=== PATIENT | male | born 1970 | race African-American/Black ===

== ENCOUNTER 2016-10-10 11:58 | Inpatient (IN) | payer OTHER ==
[2016-10-10 12:44] VITALS: BMI 25.9
[2016-10-10] MEDS ORDERED: MAGNESIUM HYDROX 2400MG/30ML ORAL SUSPENSION 30 ML CUP PO PRN (17:37)
[2016-10-10] MEDS ORDERED: chlordiazePOXIDE HCL 25 MG CAPSULE PO PRN (17:37)
[2016-10-10] MEDS ORDERED: MENTHOL/PHENOL 1 EACH UD MM PRN (17:37)
[2016-10-10] MEDS ORDERED: guaiFENesin/D-METHORPHAN HB 10 ML UNIT-DOSE CUPS PO PRN (17:37)
[2016-10-10] MEDS ORDERED: NICOTINE POLACRILEX 4 MG GUM BC PRN (17:37)
[2016-10-10] MEDS ORDERED: MAG HYDROX/AL HYDROX/SIMETH 30 ML UNIT-DOSE CUP PO PRN (17:37)
[2016-10-10] MEDS ORDERED: P-EPHED 60MG/TRIPROLIDI 2.5MG TABLET PO PRN (17:37)
[2016-10-10] MEDS ORDERED: MAGNESIUM CITRATE 300 ML BOTTLE PO PRN (17:37)
[2016-10-10] MEDS ORDERED: ACETAMINOPHEN 325 MG TABLET (FP) PO PRN (17:37)
[2016-10-10] MEDS ORDERED: LOPERAMIDE HCL 2 MG CAPSULE PO PRN (17:37)
[2016-10-10] MEDS ORDERED: IBUPROFEN 400 MG TABLET (FP) PO PRN (17:37)
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
[2016-10-10 21:13] LABS: URINE APPEARANCE CLEAR; URINE BILIRUBIN NEGATIVE (NEGATIVE); URINE BLOOD NEGATIVE (NEGATIVE); URINE COLOR YELLOW; URINE GLUCOSE (UA) NEGATIVE (NEGATIVE); URINE KETONE TRACE (NEGATIVE); URINE LEUK ESTERASE NEGATIVE (NEGATIVE); URINE NITRITE NEGATIVE (NEGATIVE); URINE PROTEIN NEGATIVE (NEGATIVE); URINE UROBILINOGEN NEGATIVE E.U./dl (0.2-1.0)
[2016-10-10] MEDS: chlordiazePOXIDE HCL 25 MG CAPSULE PO SCH (22:18)
[2016-10-10] MEDS: THIAMINE HCL 100 MG TABLET (FP) PO SCH (22:18)
[2016-10-10] MEDS: diphenhydrAMINE HCL 50 MG CAPSULE PO PRN (23:51)
[2016-10-11] MEDS: chlordiazePOXIDE HCL 25 MG CAPSULE PO SCH ×4 (05:11→22:31)
[2016-10-11 09:58] LABS: MCH 29.2 pg (25.7-33.7); MCHC 33.3 g/dl (32.0-35.9); MEAN CELL VOLUME 87.8 fl (80-96); PLATELET COUNT 182 K/MM3 (134-434); RDW 15.1 % (11.9-15.9); WHITE BLOOD COUNT 5.6 K/mm3 (4.0-10.0)
--- NOTE | 2016-10-11 10:04 | PN ---
S CIWA - CIWA Score Nausea/Vomitin-No Nausea/No Vomiting Muscle Tremors: 4-Moderate,w/Arms Extend Anxiety: 3 Agitation: 4-Moderately Restless Paroxysmal Sweats: 3 Orientation: 0-Oriented Tacttile Disturbances: 0-None Auditory Disturbances: 0-None Visual Disturbances: 0-None Headache: 1-Very Mild CIWA-Ar Total Score: 15 BHS Progress Note (SOAP) Subjective: headache sweats shakes irritable chills Objective: 10/11/16 10:02 Vital Signs Temperature 98.1 F 10/11/16 09:43 Pulse Rate 85 10/11/16 09:43 Respiratory Rate 18 10/11/16 09:43 Blood Pressure 134/82 10/11/16 09:43 O2 Sat by Pulse Oximetry (%) Laboratory Tests 10/10/16 20:00 Urine Color Yellow Urine Appearance Clear Urine pH 5.0 Ur Specific [place] 1.025 Urine Protein Negative Urine Glucose (UA) Negative Urine Ketones Trace H Urine Blood Negative Urine Nitrite Negative Urine Bilirubin Negative Urine Urobilinogen Negative Ur Leukocyte Esterase Negative labs pending awake/alert lying in bed no acute distress Assessment: 10/11/16 10:03 withdrawal sx Plan: continue detox increase fluids labs pending
[2016-10-11] MEDS: PRENATAL VITAMINS W/ FOLIC ACID TABLET (FP) PO SCH (10:13)
[2016-10-11] MEDS: NICOTINE 21 MG/24 HOURS TOPICAL PATCH TD SCH (10:14)
[2016-10-11 10:18] LABS: ALBUMIN 4.4 g/dl (3.4-5.0); ALK PHOS 82 U/L (45-117); ANION GAP 8 (8-16); BILIRUBIN,TOTAL 0.7 mg/dL (0.2-1.0); CALCIUM 9.1 mg/dL (8.5-10.1); CO2 28 mmol/L (21-32); COCKROFT - GAULT 104; GLUCOSE,RANDOM 80 mg/dL (74-106); SGOT/AST 26 U/L (15-37); SGPT/ALT 19 U/L (12-78); TOT PROT 7.3 g/dl (6.4-8.2)
--- NOTE | 2016-10-11 10:36 | EKG ---
Test Reason : Blood Pressure : / mmHG Vent. Rate : 095 BPM Atrial Rate : 095 BPM P-R Int : 160 ms QRS Dur : 090 ms QT Int : 354 ms P-R-T Axes : 068 061 054 degrees QTc Int : 444 ms NORMAL SINUS RHYTHM NORMAL ECG NO PREVIOUS ECGS AVAILABLE Confirmed by CHANEL STEEN MD ([id number]) on 10/11/2016 10:36:07 AM Referred By: Confirmed By:CHANEL STEEN MD
[2016-10-11 11:14] LABS: HIV 1 & 2 AB NEGATIVE; HIV 1 AGp24 NEGATIVE
[2016-10-11] MEDS: THIAMINE HCL 100 MG TABLET (FP) PO SCH (22:31)
[2016-10-11] MEDS: diphenhydrAMINE HCL 50 MG CAPSULE PO PRN (22:31)
[2016-10-12] MEDS: chlordiazePOXIDE HCL 25 MG CAPSULE PO SCH ×3 (05:35→17:44)
--- NOTE | 2016-10-12 09:58 | PN ---
S CIWA - CIWA Score Nausea/Vomitin-No Nausea/No Vomiting Muscle Tremors: 4-Moderate,w/Arms Extend Anxiety: 3 Agitation: 4-Moderately Restless Paroxysmal Sweats: 3 Orientation: 0-Oriented Tacttile Disturbances: 0-None Auditory Disturbances: 0-None Visual Disturbances: 0-None Headache: 0-None Present CIWA-Ar Total Score: 14 BHS Progress Note (SOAP) Subjective: sweats irritable agitation tired Objective: 10/12/16 09:51 Vital Signs Temperature 97.3 F L 10/12/16 06:00 Pulse Rate 64 10/12/16 06:00 Respiratory Rate 18 10/12/16 06:00 Blood Pressure 127/79 10/12/16 06:00 O2 Sat by Pulse Oximetry (%) Laboratory Tests 10/10/16 10/11/16 10/11/16 20:00 06:00 06:00 WBC 5.6 RBC 4.80 Hgb 14.0 D Hct 42.1 MCV 87.8 MCHC 33.3 RDW 15.1 Plt Count 182 MPV 9.0 Sodium Potassium Chloride Carbon Dioxide Anion Gap BUN Creatinine Creat Clearance w eGFR Random Glucose Calcium Total Bilirubin AST ALT Alkaline Phosphatase Total Protein Albumin Urine Color Yellow Urine Appearance Clear Urine pH 5.0 Ur Specific [place] 1.025 Urine Protein Negative Urine Glucose (UA) Negative Urine Ketones Trace H Urine Blood Negative Urine Nitrite Negative Urine Bilirubin Negative Urine Urobilinogen Negative Ur Leukocyte Esterase Negative RPR Titer HIV 1&2 Antibody Screen Negative HIV P24 Antigen Negative 10/11/16 10/11/16 06:00 06:00 WBC RBC Hgb Hct MCV MCHC RDW Plt Count MPV Sodium 139 Potassium 4.5 Chloride 103 Carbon Dioxide 28 Anion Gap 8 BUN 13 Creatinine 1.0 Creat Clearance w eGFR > 60 Random Glucose 80 D Calcium 9.1 Total Bilirubin 0.7 D AST 26 D ALT 19 D Alkaline Phosphatase 82 Total Protein 7.3 Albumin 4.4 Urine Color Urine Appearance Urine pH Ur Specific [place] Urine Protein Urine Glucose (UA) Urine Ketones Urine Blood Urine Nitrite Urine Bilirubin Urine Urobilinogen Ur Leukocyte Esterase RPR Titer Nonreactive HIV 1&2 Antibody Screen HIV P24 Antigen awake/alert ambulating no acute distress Assessment: 10/12/16 09:58 withdrawal sx Plan: continue detox increase fluids
[2016-10-12] MEDS: PRENATAL VITAMINS W/ FOLIC ACID TABLET (FP) PO SCH (10:17)
[2016-10-12] MEDS: NICOTINE 21 MG/24 HOURS TOPICAL PATCH TD SCH (10:18)
[2016-10-12] MEDS: chlordiazePOXIDE 5 MG CAPSULE PO SCH (22:16)
[2016-10-12] MEDS: THIAMINE HCL 100 MG TABLET (FP) PO SCH (22:16)
[2016-10-12] MEDS: diphenhydrAMINE HCL 50 MG CAPSULE PO PRN (23:56)
[2016-10-13] MEDS: chlordiazePOXIDE 5 MG CAPSULE PO SCH ×3 (05:21→17:09)
[2016-10-13] MEDS: PRENATAL VITAMINS W/ FOLIC ACID TABLET (FP) PO SCH (10:24)
[2016-10-13] MEDS: NICOTINE 21 MG/24 HOURS TOPICAL PATCH TD SCH (10:25)
--- NOTE | 2016-10-13 12:55 | PN ---
BHS Progress Note (SOAP) Subjective: ALERT,IRRITABLE,ANXIOUS,INTERRUPTED SLEEP,PAIN IN THE BODY AND BACK Objective: 10/13/16 12:54 Vital Signs Temperature 97.7 F 10/13/16 06:18 Pulse Rate 82 10/13/16 06:18 Respiratory Rate 18 10/13/16 06:18 Blood Pressure 115/79 10/13/16 06:18 O2 Sat by Pulse Oximetry (%) Assessment: 10/13/16 12:54 WITHDRAWAL SYMPTOM Plan: WITHDRAWAL SYMPTOM,CONTINUE DETOX
[2016-10-13] MEDS: diphenhydrAMINE HCL 50 MG CAPSULE PO PRN (22:15)
[2016-10-13] MEDS: THIAMINE HCL 100 MG TABLET (FP) PO SCH (22:15)
[2016-10-13] MEDS: chlordiazePOXIDE HCL 10 MG CAPSULE PO SCH (22:15)
[2016-10-14] MEDS: chlordiazePOXIDE HCL 10 MG CAPSULE PO SCH (05:37)
--- NOTE | 2016-10-14 09:16 | PN ---
S Progress Note (SOAP) Subjective: ALERT,NO COMPLAINT Objective: 10/14/16 09:15 Vital Signs Temperature 97.3 F L 10/14/16 06:00 Pulse Rate 68 10/14/16 06:00 Respiratory Rate 18 10/14/16 06:00 Blood Pressure 125/76 10/14/16 06:00 O2 Sat by Pulse Oximetry (%) Assessment: 10/14/16 09:15 DETOX COMPLETED,NO WITHDRAWAL SYMPTOM Plan: DISCHARGE TODAY,FOLLOW UP WITH AFTER CARE PROGRAM ARRANGEMENT
--- NOTE | 2016-10-14 09:18 | DS ---
[facility] Detox Discharge Summary Admission Date: 10/10/16 Discharge Date: 10/14/16 - History Present History: Alcohol Dependence, Cocaine Dependence Additional Comments: FOLLOW UP WITH AFTER CARE PROGRAM ARRANGEMENT Pertinent Past History: NICOTINE DEPENDENCE ARTHRITIS - Physical Exam Results Vital Signs: Vital Signs Temperature 97.3 F L 10/14/16 06:00 Pulse Rate 68 10/14/16 06:00 Respiratory Rate 18 10/14/16 06:00 Blood Pressure 125/76 10/14/16 06:00 O2 Sat by Pulse Oximetry (%) Pertinent Admission Physical Exam Findings: WITHDRAWAL SYMPTOM - Treatment Hospital Course: Detox Protocol Followed, Detoxed Safely, Responded well, Discharged Condition Good Patient has Accepted a Rehab Referral to: DECLINED - Medication Discharge Medications: Ambulatory Orders Aspirin/Acetaminophen/Caffeine [Excedrin Migraine Caplet] 1 tab PO DAILY PRN 11/19 - Diagnosis (1) Alcohol dependence with uncomplicated withdrawal Current Visit: Yes Status: Acute (2) Nicotine dependence Current Visit: Yes Status: Acute (3) Chronic arthritis Current Visit: No Status: Chronic (4) Cocaine dependence Current Visit: Yes Status: Acute - AMA Did Patient Leave Against Medical Advice: No
[2016-10-14] MEDS: NICOTINE 21 MG/24 HOURS TOPICAL PATCH TD SCH (09:47)
[2016-10-14] MEDS: PRENATAL VITAMINS W/ FOLIC ACID TABLET (FP) PO SCH (09:47)
[2016-10-14 10:02] VITALS: BP 119/73; PULSE 95; TEMP 97.7
== END 2016-10-14 10:10 | disposition home or self-care (01) | DRG 774 ==
LOC: YASAS 11:58 → Y6N 17:35
PROVIDERS: ADMIT Internal Medicine; ATTEND Internal Medicine
PROC: HZ2ZZZZ Detoxification Services for Substance Abuse Treatment (ICD-10-PCS; principal; 2016-10-10)
DX: F10.230 Alcohol dependence with withdrawal, uncomplicated (principal); F14.20 Cocaine dependence, uncomplicated; F17.210 Nicotine dependence, cigarettes, uncomplicated; M19.90 Unspecified osteoarthritis, unspecified site
CPT/HCPCS: 36415; 80053; 81003; 85027; 86593; 87389; 93005; 93010

== ENCOUNTER 2018-12-29 12:38 | Inpatient (IN) | payer OTHER ==
[2018-12-29 15:40] VITALS: BMI 28.7
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
[2018-12-29] MEDS ORDERED: hydrOXYzine PAMOATE 25 MG CAPSULE (FP) PO PRN (17:22)
[2018-12-29] MEDS ORDERED: IBUPROFEN 400 MG TABLET (FP) PO PRN (17:22)
[2018-12-29] MEDS ORDERED: MAGNESIUM HYDROX 2400MG/30ML ORAL SUSPENSION 30 ML CUP PO PRN (17:22)
[2018-12-29] MEDS ORDERED: ACETAMINOPHEN 325 MG TABLET (FP) PO PRN ×2 (17:22)
[2018-12-29] MEDS ORDERED: METHOCARBAMOL 500 MG TABLET PO PRN (17:22)
[2018-12-29] MEDS ORDERED: MAG HYDROX/AL HYDROX/SIMETH 30 ML UNIT-DOSE CUP PO PRN (17:22)
[2018-12-29] MEDS ORDERED: MENTHOL/PHENOL 1 EACH UD MM PRN (17:22)
[2018-12-29] MEDS ORDERED: MAGNESIUM CITRATE 300 ML BOTTLE PO PRN (17:22)
[2018-12-29] MEDS ORDERED: BISMUTH SUBSALICYLATE 524 MG/30 ML UD PO PRN (17:22)
--- NOTE | 2018-12-29 17:41 | PN ---
Teaching Attending Note Name of Resident: Wayne Mac ATTENDING PHYSICIAN STATEMENT I saw and evaluated the patient. I reviewed the resident's note and discussed the case with the resident. I agree with the resident's findings and plan as documented. SUBJECTIVE: etoh withdrawal OBJECTIVE: acute withdrawal ASSESSMENT AND PLAN: detox protocol
[2018-12-29] MEDS: chlordiazePOXIDE HCL 25 MG CAPSULE PO PRN (18:23)
[2018-12-29] MEDS: chlordiazePOXIDE HCL 25 MG CAPSULE PO SCH (22:30)
[2018-12-29] MEDS: THIAMINE HCL 100 MG TABLET (FP) PO SCH (22:30)
[2018-12-30] MEDS: chlordiazePOXIDE HCL 25 MG CAPSULE PO PRN (02:01)
[2018-12-30] MEDS: MELATONIN 5 MG TABLETS PO PRN ×2 (02:01→22:24)
[2018-12-30] MEDS: chlordiazePOXIDE HCL 25 MG CAPSULE PO SCH ×4 (06:46→22:23)
[2018-12-30] MEDS: PRENATAL VITAMINS W/ FOLIC ACID TABLET (FP) PO SCH (10:40)
--- NOTE | 2018-12-30 11:04 | PN ---
S CIWA - CIWA Score Nausea/Vomitin Muscle Tremors: 2 Anxiety: 2 Agitation: 2 Paroxysmal Sweats: 1-Minimal Palms Moist Orientation: 0-Oriented Tacttile Disturbances: 1-Very Mild Itch/Numbness Auditory Disturbances: 0-None Visual Disturbances: 0-None Headache: 2-Mild CIWA-Ar Total Score: 12 BHS Progress Note (SOAP) Subjective: alert,irritable,anxious,interrupted sleep,tremor Objective: 12/30/18 11:03 Vital Signs Temperature 97.7 F 12/30/18 09:19 Pulse Rate 84 12/30/18 09:19 Respiratory Rate 18 12/30/18 09:19 Blood Pressure 134/79 12/30/18 09:19 O2 Sat by Pulse Oximetry (%) 12/30/18 11:03 labs pending Assessment: 12/30/18 11:04 withdrawal symptom Plan: continue detox,librium regimen
[2018-12-30 11:50] LABS: BILIRUBIN,TOTAL 0.8 mg/dL (0.2-1); BLOOD UREA NITROGEN 12.3 mg/dL (7-18); CALCIUM 9.2 mg/dL (8.5-10.1); CREATININE 1.1 mg/dL (0.55-1.3); POTASSIUM 4.5 mmol/L (3.5-5.1)
[2018-12-30 11:58] LABS: HEMATOCRIT 42.9 % (35.4-49); HEMOGLOBIN 14.4 GM/dL (11.7-16.9); MCH 30.6 pg (25.7-33.7); MCHC 33.5 g/dl (32.0-35.9); MEAN CELL VOLUME 91.2 fl (80-96); PLATELET COUNT 170 K/MM3 (134-434); RDW 18.4 % (11.9-15.9); WHITE BLOOD COUNT 3.5 K/mm3 (4.0-10.0)
[2018-12-30] MEDS: NICOTINE POLACRILEX 2 MG GUM BUC PRN ×2 (15:41→17:55)
[2018-12-30] MEDS: THIAMINE HCL 100 MG TABLET (FP) PO SCH (22:23)
[2018-12-31] MEDS: chlordiazePOXIDE HCL 25 MG CAPSULE PO PRN (03:59)
[2018-12-31] MEDS: chlordiazePOXIDE HCL 25 MG CAPSULE PO SCH ×4 (07:32→22:07)
--- NOTE | 2018-12-31 09:49 | PN ---
S CIWA - CIWA Score Nausea/Vomitin Muscle Tremors: 2 Anxiety: 2 Agitation: 2 Paroxysmal Sweats: No Perspiration Orientation: 0-Oriented Tacttile Disturbances: 0-None Auditory Disturbances: 0-None Visual Disturbances: 0-None Headache: 2-Mild CIWA-Ar Total Score: 10 BHS Progress Note (SOAP) Subjective: alert,irritable,anxious,interrupted sleep,tremor Objective: 12/31/18 09:46 Vital Signs Temperature 97.3 F L 12/31/18 09:15 Pulse Rate 83 12/31/18 09:15 Respiratory Rate 18 12/31/18 09:15 Blood Pressure 125/86 12/31/18 09:15 O2 Sat by Pulse Oximetry (%) Laboratory Last Values WBC 3.5 K/mm3 (4.0-10.0) L 12/30/18 07:30 RBC 4.70 M/mm3 (4.00-5.60) 12/30/18 07:30 Hgb 14.4 GM/dL (11.7-16.9) 12/30/18 07:30 Hct 42.9 % (35.4-49) 12/30/18 07:30 MCV 91.2 fl (80-96) 12/30/18 07:30 MCH 30.6 pg (25.7-33.7) 12/30/18 07:30 MCHC 33.5 g/dl (32.0-35.9) 12/30/18 07:30 RDW 18.4 % (11.9-15.9) H 12/30/18 07:30 Plt Count 170 K/MM3 (134-434) 12/30/18 07:30 MPV 9.0 fl (7.5-11.1) 12/30/18 07:30 Sodium 142 mmol/L (136-145) 12/30/18 07:30 Potassium 4.5 mmol/L (3.5-5.1) 12/30/18 07:30 Chloride 106 mmol/L (98-107) 12/30/18 07:30 Carbon Dioxide 26 mmol/L (21-32) 12/30/18 07:30 Anion Gap 10 MMOL/L (8-16) 12/30/18 07:30 BUN 12.3 mg/dL (7-18) 12/30/18 07:30 Creatinine 1.1 mg/dL (0.55-1.3) 12/30/18 07:30 Est GFR (CKD-EPI)AfAm 90.24 12/30/18 07:30 Est GFR (CKD-EPI)NonAf 77.86 12/30/18 07:30 Random Glucose 151 mg/dL (74-106) H 12/30/18 07:30 Calcium 9.2 mg/dL (8.5-10.1) 12/30/18 07:30 Total Bilirubin 0.8 mg/dL (0.2-1) 12/30/18 07:30 AST 80 U/L (15-37) H 12/30/18 07:30 ALT 58 U/L (13-61) 12/30/18 07:30 Alkaline Phosphatase 73 U/L (45-117) 12/30/18 07:30 Total Protein 7.0 g/dl (6.4-8.2) 12/30/18 07:30 Albumin 4.0 g/dl (3.4-5.0) 12/30/18 07:30 RPR Titer Nonreactive (NONREACTIVE) 12/30/18 07:30 HIV 1&2 Ag/Ab, 4th Gen Non reactive (Non Reactive) 12/30/18 10:00 HIV 1&2 Antibody Screen Cancelled 12/30/18 07:30 HIV P24 Antigen Cancelled 12/30/18 07:30 Assessment: 12/31/18 09:47 withdrawal symptom Plan: continue detox librium regimen,glucose 151,ast 80,alt 58,fasting glucose in am,
[2018-12-31] MEDS: PRENATAL VITAMINS W/ FOLIC ACID TABLET (FP) PO SCH (10:08)
[2018-12-31] MEDS: NICOTINE POLACRILEX 2 MG GUM BUC PRN ×2 (12:06→15:35)
[2018-12-31] MEDS: MELATONIN 5 MG TABLETS PO PRN (22:07)
[2018-12-31] MEDS: THIAMINE HCL 100 MG TABLET (FP) PO SCH (22:07)
[2019-01-01] MEDS ORDERED: chlordiazePOXIDE HCL 10 MG CAPSULE PO PRN
[2019-01-01] MEDS: chlordiazePOXIDE HCL 10 MG CAPSULE PO SCH ×4 (05:21→22:08)
--- NOTE | 2019-01-01 10:12 | PN ---
S CIWA - CIWA Score Nausea/Vomitin-Mild Nausea/No Vomiting Muscle Tremors: 1-None Visible, but [place] Anxiety: 2 Agitation: 2 Paroxysmal Sweats: No Perspiration Orientation: 0-Oriented Tacttile Disturbances: 0-None Auditory Disturbances: 0-None Visual Disturbances: 0-None Headache: 1-Very Mild CIWA-Ar Total Score: 7 S Progress Note (SOAP) Subjective: alert,irritable,anxious,interrupted sleep,tremor Objective: 01/01/19 10:09 Vital Signs Temperature 96.8 F L 01/01/19 09:28 Pulse Rate 81 01/01/19 09:28 Respiratory Rate 18 01/01/19 09:28 Blood Pressure 126/79 01/01/19 09:28 O2 Sat by Pulse Oximetry (%) 01/01/19 10:10 fasting glucose pending Assessment: 01/01/19 10:10 withdrawal symptom Plan: continue detox librium regimen,discharge in am,bgm monitoring
[2019-01-01] MEDS: PRENATAL VITAMINS W/ FOLIC ACID TABLET (FP) PO SCH (10:18)
[2019-01-01] MEDS: NICOTINE POLACRILEX 2 MG GUM BUC PRN (18:37)
[2019-01-01] MEDS: THIAMINE HCL 100 MG TABLET (FP) PO SCH (22:08)
[2019-01-01] MEDS: MELATONIN 5 MG TABLETS PO PRN (22:08)
[2019-01-02] MEDS ORDERED: chlordiazePOXIDE HCL 10 MG CAPSULE PO SCH (05:00)
[2019-01-02 06:54] VITALS: BP 120/73; PULSE 62; TEMP 97.7
--- NOTE | 2019-01-02 08:09 | DS ---
[facility] Detox Discharge Summary Admission Date: 12/29/18 Discharge Date: 01/02/19 - History Present History: Alcohol Dependence, Cocaine Dependence - Physical Exam Results Vital Signs: Vital Signs Temperature 97.7 F 01/02/19 06:00 Pulse Rate 62 01/02/19 06:00 Respiratory Rate 18 01/02/19 06:00 Blood Pressure 120/73 01/02/19 06:00 O2 Sat by Pulse Oximetry (%) Pertinent Admission Physical Exam Findings: pt arrived in withdrawal sx Laboratory Tests 12/30/18 12/30/18 12/30/18 07:30 07:30 07:30 WBC 3.5 L RBC 4.70 Hgb 14.4 Hct 42.9 MCV 91.2 MCH 30.6 MCHC 33.5 RDW 18.4 H Plt Count 170 MPV 9.0 Sodium 142 Potassium 4.5 Chloride 106 Carbon Dioxide 26 Anion Gap 10 BUN 12.3 Creatinine 1.1 Est GFR (CKD-EPI)AfAm 90.24 Est GFR (CKD-EPI)NonAf 77.86 POC Glucometer Random Glucose 151 H Fasting Glucose Calcium 9.2 Total Bilirubin 0.8 AST 80 H ALT 58 Alkaline Phosphatase 73 Total Protein 7.0 Albumin 4.0 RPR Titer Nonreactive HIV 1&2 Ag/Ab, 4th Gen HIV 1&2 Antibody Screen HIV P24 Antigen 12/30/18 12/30/18 12/31/18 07:30 10:00 16:34 WBC RBC Hgb Hct MCV MCH MCHC RDW Plt Count MPV Sodium Potassium Chloride Carbon Dioxide Anion Gap BUN Creatinine Est GFR (CKD-EPI)AfAm Est GFR (CKD-EPI)NonAf POC Glucometer 135 Random Glucose Fasting Glucose Calcium Total Bilirubin AST ALT Alkaline Phosphatase Total Protein Albumin RPR Titer HIV 1&2 Ag/Ab, 4th Gen Non reactive HIV 1&2 Antibody Screen Cancelled HIV P24 Antigen Cancelled 01/01/19 01/01/19 01/02/19 07:30 16:25 05:12 WBC RBC Hgb Hct MCV MCH MCHC RDW Plt Count MPV Sodium Potassium Chloride Carbon Dioxide Anion Gap BUN Creatinine Est GFR (CKD-EPI)AfAm Est GFR (CKD-EPI)NonAf POC Glucometer 126 121 Random Glucose Fasting Glucose 93 Calcium Total Bilirubin AST ALT Alkaline Phosphatase Total Protein Albumin RPR Titer HIV 1&2 Ag/Ab, 4th Gen HIV 1&2 Antibody Screen HIV P24 Antigen today pt is aaox3 ambulating no acute distress no s/s of withdrawals - Treatment Hospital Course: Detox Protocol Followed, Detoxed Safely, Responded well, Discharged Condition Good, Rehab Referral Accepted Patient has Accepted a Rehab Referral to: pt declined rehab; referral provied - Medication Discharge Medications: Ambulatory Orders Aspirin/Acetaminophen/Caffeine [Excedrin Migraine Caplet] 1 tab PO DAILY PRN 11/19 - Diagnosis (1) Sickle cell trait Current Visit: Yes Status: Acute (2) Alcohol dependence with uncomplicated withdrawal Current Visit: Yes Status: Chronic (3) Cocaine dependence Current Visit: Yes Status: Chronic Qualifiers: Substance use status: uncomplicated Qualified Code(s): F14.20 - Cocaine dependence, uncomplicated (4) Nicotine dependence Current Visit: Yes Status: Chronic (5) Chronic arthritis Current Visit: Yes Status: Chronic - AMA Did Patient Leave Against Medical Advice: No
[2019-01-03] MEDS ORDERED: chlordiazePOXIDE HCL 10 MG CAPSULE PO ONE (05:00)
== END 2019-01-02 08:50 | disposition home or self-care (01) | DRG 774 ==
LOC: YASAS 12:38 → Y6N 17:48
PROVIDERS: ADMIT Surgery; ATTEND Surgery
PROC: HZ2ZZZZ Detoxification Services for Substance Abuse Treatment (ICD-10-PCS; principal; 2018-12-29)
DX: F10.230 Alcohol dependence with withdrawal, uncomplicated (principal); F14.20 Cocaine dependence, uncomplicated; F17.210 Nicotine dependence, cigarettes, uncomplicated; M12.9 Arthropathy, unspecified; D57.3 Sickle-cell trait
CPT/HCPCS: 36415; 80053; 82947; 82962; 85027; 86480; 86593; 87389

== ENCOUNTER 2020-01-02 09:13 | Inpatient (IN) | payer OTHER ==
--- NOTE | 2020-01-02 14:13 | BHS.RME ---
Substance Use & Tx History - Substance Use History Alcohol Substance amount: 6 packs of 24 ozs of beer Frequency of use: Daily Substance route: Oral Date of Last Use: 01/02/20 - Last Treatment Date of last treatment: 11/22 not complted Where was last treatment: Detox Physical/Psych/Mental Status - Behavior Eye Contact: Normal - Cooperativeness Cooperativeness: Cooperative - Thinking Thought Processes: Logical Thought content: Future oriented - Physical Health Problems Is patient presently having any pain?: No Does patient presently have any injuries (include location): No Does patient currently have a fever: No CIWA Nausea/Vomitin Muscle Tremors: 2 Anxiety: 3 Agitation: 2 Paroxysmal Sweats: 1-Minimal Palms Moist Orientation: 0-Oriented Tacttile Disturbances: 1-Very Mild Itch/Numbness Auditory Disturbances: 0-None Visual Disturbances: 0-None Headache: 2-Mild CIWA-Ar Total Score: 13
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
[2020-01-02 15:54] VITALS: BMI 23.2
[2020-01-02] MEDS ORDERED: MAG HYDROX/AL HYDROX/SIMETH 30 ML UNIT-DOSE CUP PO PRN (16:57)
[2020-01-02] MEDS ORDERED: ONDANSETRON *ODT* 4 MG TABLET SL ONE (16:57)
[2020-01-02] MEDS ORDERED: NICOTINE POLACRILEX 2 MG GUM BUC PRN (16:57)
[2020-01-02] MEDS ORDERED: ACETAMINOPHEN 325 MG TABLET (FP) PO PRN ×2 (16:57)
[2020-01-02] MEDS ORDERED: MAGNESIUM CITRATE 300 ML BOTTLE PO PRN (16:57)
[2020-01-02] MEDS ORDERED: IBUPROFEN 400 MG TABLET (FP) PO PRN (16:57)
[2020-01-02] MEDS ORDERED: MAGNESIUM HYDROX 2400MG/30ML ORAL SUSPENSION 30 ML CUP PO PRN (16:57)
[2020-01-02] MEDS: hydrOXYzine PAMOATE 25 MG CAPSULE (FP) PO SCH ×2 (17:32→22:00)
[2020-01-02] MEDS: MELATONIN 5 MG TABLETS PO SCH (22:00)
[2020-01-02] MEDS: THIAMINE HCL 100 MG TABLET (FP) PO SCH (22:00)
[2020-01-02] MEDS: chlordiazePOXIDE HCL 25 MG CAPSULE PO SCH (22:01)
[2020-01-02] MEDS: METHOCARBAMOL 500 MG TABLET PO PRN (23:34)
[2020-01-03] MEDS: hydrOXYzine PAMOATE 25 MG CAPSULE (FP) PO SCH ×5 (06:17→22:28)
[2020-01-03] MEDS: chlordiazePOXIDE HCL 25 MG CAPSULE PO SCH ×4 (06:17→22:28)
[2020-01-03] MEDS: PRENATAL VITAMINS W/ FOLIC ACID TABLET (FP) PO SCH (10:05)
[2020-01-03 10:16] LABS: HEMATOCRIT 36.2 % (35.4-49); HEMOGLOBIN 12.2 GM/dL (11.7-16.9); MCH 30.3 pg (25.7-33.7); MCHC 33.6 g/dl (32.0-35.9); MEAN CELL VOLUME 89.9 fl (80-96); MEAN PLT VOLUME 8.8 fl (7.5-11.1); PLATELET COUNT 77 K/MM3 (134-434); RBC 4.03 M/mm3 (4.00-5.60); RDW 18.3 % (11.9-15.9); WHITE BLOOD COUNT 2.7 K/mm3 (4.0-10.0)
[2020-01-03 10:21] LABS: ALBUMIN 3.2 g/dl (3.4-5.0); BLOOD UREA NITROGEN 9.1 mg/dL (7-18); CALCIUM 8.4 mg/dL (8.5-10.1); POTASSIUM 3.7 mmol/L (3.5-5.1)
[2020-01-03 10:26] LABS: BILIRUBIN,TOTAL 1.3 mg/dL (0.2-1); CREATININE 1.1 mg/dL (0.55-1.3); TOT PROT 6.3 g/dl (6.4-8.2)
[2020-01-03] MEDS: NICOTINE 7 MG/24 HOURS TOPICAL PATCH TD SCH (11:10)
[2020-01-03] MEDS: chlordiazePOXIDE HCL 25 MG CAPSULE PO PRN (13:11)
[2020-01-03] MEDS: METHOCARBAMOL 500 MG TABLET PO PRN ×2 (13:11→22:29)
--- NOTE | 2020-01-03 15:07 | PN ---
[facility] CIWA - CIWA Score Nausea/Vomitin-Mild Nausea/No Vomiting Muscle Tremors: 2 Anxiety: 2 Agitation: 2 Paroxysmal Sweats: 2 Orientation: 0-Oriented Tacttile Disturbances: 1-Very Mild Itch/Numbness Auditory Disturbances: 0-None Visual Disturbances: 0-None Headache: 1-Very Mild CIWA-Ar Total Score: 11 S Progress Note (SOAP) Subjective: Tremor, interrupted sleep Objective: 01/03/20 15:01 Last Vital Signs Temp Pulse Resp BP Pulse Ox 98.4 F 81 16 122/73 96 01/03/20 08:46 01/03/20 08:46 01/03/20 08:46 01/03/20 08:46 01/03/20 06:08 Laboratory Tests 01/03/20 01/03/20 01/03/20 07:34 07:34 07:34 WBC 2.7 L RBC 4.03 Hgb 12.2 Hct 36.2 D MCV 89.9 MCH 30.3 MCHC 33.6 RDW 18.3 H Plt Count 77 L D MPV 8.8 Sodium 136 Potassium 3.7 Chloride 101 Carbon Dioxide 28 Anion Gap 7 L BUN 9.1 Creatinine 1.1 Est GFR (CKD-EPI)AfAm 89.61 Est GFR (CKD-EPI)NonAf 77.32 Random Glucose 101 Calcium 8.4 L Total Bilirubin 1.3 H AST 295 H ALT 109 H Alkaline Phosphatase 146 H Total Protein 6.3 L Albumin 3.2 L Syphilis Serology Non-reactive Labs reviewed: wbc 2.7 (low), plt 77 (low), elevated LFTs Assessment: 01/03/20 15:04 Withdrawal sxs Noted with leukopenia, thrombocytopenia and elevated LFTs Plan: Continue detox Encourage PO water hydration Leukopenia: monitor CBC periodically, encourage good handwashing with soap and water Thrombocytopenia: most likely due to alcoholism, monitor for bruising Elevated LFTs: most likely due to alcoholism, repeat hepatic function panel
[2020-01-03] MEDS: MELATONIN 5 MG TABLETS PO SCH (22:28)
[2020-01-03] MEDS: THIAMINE HCL 100 MG TABLET (FP) PO SCH (22:28)
[2020-01-04] MEDS: chlordiazePOXIDE HCL 25 MG CAPSULE PO PRN (01:10)
[2020-01-04] MEDS ORDERED: chlordiazePOXIDE HCL 25 MG CAPSULE PO SCH (05:00)
[2020-01-04] MEDS: hydrOXYzine PAMOATE 25 MG CAPSULE (FP) PO SCH ×5 (06:02→22:12)
[2020-01-04] MEDS ORDERED: LORazepam 1 MG TABLET PO PRN (09:09)
[2020-01-04] MEDS: PRENATAL VITAMINS W/ FOLIC ACID TABLET (FP) PO SCH (10:27)
[2020-01-04] MEDS: NICOTINE 7 MG/24 HOURS TOPICAL PATCH TD SCH (10:27)
[2020-01-04] MEDS: LORazepam 2 MG TABLET PO SCH ×3 (10:27→22:12)
[2020-01-04 13:08] LABS: ALBUMIN 3.1 g/dl (3.4-5.0); BILIRUBIN,DIRECT 0.3 mg/dL (0.0-0.2); BILIRUBIN,TOTAL 0.8 mg/dL (0.2-1); TOT PROT 6.2 g/dl (6.4-8.2)
--- NOTE | 2020-01-04 13:54 | PN ---
S CIWA - CIWA Score Nausea/Vomitin-Mild Nausea/No Vomiting Muscle Tremors: 2 Anxiety: 2 Agitation: 2 Paroxysmal Sweats: No Perspiration Orientation: 0-Oriented Tacttile Disturbances: 1-Very Mild Itch/Numbness Auditory Disturbances: 0-None Visual Disturbances: 0-None Headache: 2-Mild CIWA-Ar Total Score: 10 BHS Progress Note (SOAP) Subjective: alert,irritable,anxious,interrupted sleep,aching pain in the body and extremit y,mild cough Objective: 01/04/20 13:51 Vital Signs Temperature 97.1 F L 01/04/20 12:43 Pulse Rate 104 H 01/04/20 12:43 Respiratory Rate 18 01/04/20 12:43 Blood Pressure 118/67 01/04/20 12:43 O2 Sat by Pulse Oximetry (%) 100 01/04/20 12:43 Laboratory Results - last 24 hr 01/02/20 01/04/20 16:50 07:55 Total Bilirubin 0.8 Direct Bilirubin 0.3 H AST 264 H ALT 103 H Alkaline Phosphatase 143 H Total Protein 6.2 L Albumin 3.1 L COVID-19 (RU) Not detected Assessment: 01/04/20 13:52 withdrawal symptom Plan: regimen changed to ativan due to elevated liver enzymes,explained to patient,understood
[2020-01-04] MEDS: guaiFENesin 200 MG/10 ML 10 ML UNIT-DOSE CUPS PO PRN (13:58)
[2020-01-04] MEDS: BISMUTH SUBSALICYLATE 524 MG/30 ML UD PO PRN ×2 (15:32→17:45)
[2020-01-04] MEDS: MELATONIN 5 MG TABLETS PO SCH (22:13)
[2020-01-04] MEDS: THIAMINE HCL 100 MG TABLET (FP) PO SCH (22:13)
[2020-01-04] MEDS: METHOCARBAMOL 500 MG TABLET PO PRN (23:07)
[2020-01-05] MEDS ORDERED: chlordiazePOXIDE HCL 10 MG CAPSULE PO PRN
[2020-01-05] MEDS ORDERED: chlordiazePOXIDE HCL 10 MG CAPSULE PO SCH (05:00)
[2020-01-05] MEDS: LORazepam 2 MG TABLET PO SCH ×4 (05:24→22:06)
[2020-01-05] MEDS: hydrOXYzine PAMOATE 25 MG CAPSULE (FP) PO SCH ×5 (05:24→22:09)
--- NOTE | 2020-01-05 09:55 | PN ---
S CIWA - CIWA Score Nausea/Vomitin-Mild Nausea/No Vomiting Muscle Tremors: 2 Anxiety: 2 Agitation: 2 Paroxysmal Sweats: No Perspiration Orientation: 0-Oriented Tacttile Disturbances: 1-Very Mild Itch/Numbness Auditory Disturbances: 0-None Visual Disturbances: 0-None Headache: 2-Mild CIWA-Ar Total Score: 10 BHS Progress Note (SOAP) Subjective: alert,irritable,anxious,interrupted sleep,tremor,aching pain in the body and b ack Objective: 01/05/20 09:53 Vital Signs Temperature 98.0 F 01/05/20 08:38 Pulse Rate 77 01/05/20 08:38 Respiratory Rate 19 01/05/20 08:38 Blood Pressure 105/66 01/05/20 08:38 O2 Sat by Pulse Oximetry (%) 99 01/05/20 08:38 Laboratory Results - last 24 hr 01/04/20 07:55 Total Bilirubin 0.8 Direct Bilirubin 0.3 H AST 264 H ALT 103 H Alkaline Phosphatase 143 H Total Protein 6.2 L Albumin 3.1 L Assessment: 01/05/20 09:53 withdrawal symptom Plan: continue detox ativan regimen,fluid,
[2020-01-05] MEDS: PRENATAL VITAMINS W/ FOLIC ACID TABLET (FP) PO SCH (10:46)
[2020-01-05] MEDS: NICOTINE 7 MG/24 HOURS TOPICAL PATCH TD SCH (10:46)
[2020-01-05] MEDS: guaiFENesin 200 MG/10 ML 10 ML UNIT-DOSE CUPS PO PRN ×2 (10:56→15:17)
[2020-01-05] MEDS: MENTHOL/PHENOL 1 EACH UD MM PRN ×2 (15:18→20:15)
[2020-01-05 16:12] LABS: URINE APPEARANCE CLEAR; URINE BILIRUBIN NEGATIVE (NEGATIVE); URINE COLOR YELLOW; URINE GLUCOSE (UA) NEGATIVE (NEGATIVE); URINE KETONE NEGATIVE (NEGATIVE); URINE LEUK ESTERASE NEGATIVE (NEGATIVE); URINE NITRITE NEGATIVE (NEGATIVE); URINE PROTEIN NEGATIVE (NEGATIVE); URINE UROBILINOGEN 0.2 mg/dL (0.2-1.0)
[2020-01-05] MEDS: MELATONIN 5 MG TABLETS PO SCH (22:06)
[2020-01-05] MEDS: METHOCARBAMOL 500 MG TABLET PO PRN (22:09)
[2020-01-05] MEDS: THIAMINE HCL 100 MG TABLET (FP) PO SCH (22:09)
[2020-01-06] MEDS ORDERED: chlordiazePOXIDE HCL 10 MG CAPSULE PO SCH (05:00)
[2020-01-06] MEDS: LORazepam 1 MG TABLET PO SCH ×2 (06:16→10:19)
[2020-01-06] MEDS: hydrOXYzine PAMOATE 25 MG CAPSULE (FP) PO SCH ×2 (06:16→10:21)
[2020-01-06] MEDS: guaiFENesin 200 MG/10 ML 10 ML UNIT-DOSE CUPS PO PRN (07:53)
[2020-01-06] MEDS: PRENATAL VITAMINS W/ FOLIC ACID TABLET (FP) PO SCH (10:19)
[2020-01-06] MEDS: NICOTINE 7 MG/24 HOURS TOPICAL PATCH TD SCH (10:20)
--- NOTE | 2020-01-06 11:50 | PN ---
S CIWA - CIWA Score Nausea/Vomitin-Mild Nausea/No Vomiting Muscle Tremors: 2 Anxiety: 2 Agitation: 2 Paroxysmal Sweats: No Perspiration Orientation: 0-Oriented Tacttile Disturbances: 0-None Auditory Disturbances: 0-None Visual Disturbances: 0-None Headache: 1-Very Mild CIWA-Ar Total Score: 8 BHS Progress Note (SOAP) Subjective: alert,irritable,anxious,interrupted sleep,aching pain Objective: 01/06/20 11:49 Vital Signs Temperature 97.1 F L 01/06/20 09:21 Pulse Rate 71 01/06/20 09:21 Respiratory Rate 17 01/06/20 09:21 Blood Pressure 119/61 01/06/20 09:21 O2 Sat by Pulse Oximetry (%) 97 01/06/20 09:21 Assessment: 01/06/20 11:49 withdrawal symptom Plan: continue detox ativan regimen
--- NOTE | 2020-01-06 13:05 | PN ---
[facility] CIWA - CIWA Score Nausea/Vomitin-No Nausea/No Vomiting Muscle Tremors: None Anxiety: 1-Mildly Anxious Agitation: 0-Normal Activity Paroxysmal Sweats: No Perspiration Orientation: 0-Oriented Tacttile Disturbances: 0-None Auditory Disturbances: 0-None Visual Disturbances: 0-None Headache: 0-None Present CIWA-Ar Total Score: 1 S Progress Note (SOAP) Subjective: alert,no complaint Objective: 01/06/20 13:02 Vital Signs Temperature 97.1 F L 01/06/20 09:21 Pulse Rate 71 01/06/20 09:21 Respiratory Rate 17 01/06/20 09:21 Blood Pressure 119/61 01/06/20 09:21 O2 Sat by Pulse Oximetry (%) 97 01/06/20 09:21 Assessment: 01/06/20 13:03 no withdrawal symptom Plan: stable for discharge follow up with out patient program as arrangement and AA meeting,follow up with Medical provider Skyler Villarreal for follow up liver enzymes and evaluation
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
[2020-01-06 13:30] VITALS: BP 126/87; PULSE 106; TEMP 97.6
[2020-01-07] MEDS ORDERED: LORazepam 0.5 MG TABLET PO PRN
[2020-01-07] MEDS ORDERED: LORazepam 0.5 MG TABLET PO SCH (05:00)
[2020-01-07] MEDS ORDERED: chlordiazePOXIDE HCL 10 MG CAPSULE PO ONE (05:00)
[2020-01-08] MEDS ORDERED: LORazepam 0.5 MG TABLET PO ONE (05:00)
== END 2020-01-06 13:15 | disposition home or self-care (01) | DRG 774 ==
LOC: YASAS 09:13 → Y6N 16:41
PROVIDERS: ADMIT Allergy & Immunology; ATTEND Allergy & Immunology
PROC: HZ2ZZZZ Detoxification Services for Substance Abuse Treatment (ICD-10-PCS; principal; 2020-01-02)
DX: F10.230 Alcohol dependence with withdrawal, uncomplicated (principal); F14.20 Cocaine dependence, uncomplicated; F10.220 Alcohol dependence with intoxication, uncomplicated; F17.210 Nicotine dependence, cigarettes, uncomplicated; D72.819 Decreased white blood cell count, unspecified; D69.6 Thrombocytopenia, unspecified; D57.3 Sickle-cell trait; R74.8 Abnormal levels of other serum enzymes; Z87.828 Personal history of other (healed) physical injury and trauma; Z91.013 Allergy to seafood
CPT/HCPCS: 36415; 80053; 80076; 81003; 85027; 86780; 87389; Q0162; U0003

== ENCOUNTER 2020-08-30 13:38 | Inpatient (IN) | payer OTHER ==
[2020-08-30] MEDS ORDERED: MENTHOL/PHENOL 1 EACH UD MM PRN (15:31)
[2020-08-30] MEDS ORDERED: MAGNESIUM HYDROX 2400MG/30ML ORAL SUSPENSION 30 ML CUP PO PRN (15:31)
[2020-08-30] MEDS ORDERED: MAG HYDROX/AL HYDROX/SIMETH 30 ML UNIT-DOSE CUP PO PRN (15:31)
[2020-08-30] MEDS ORDERED: NICOTINE POLACRILEX 2 MG GUM BUC PRN (15:31)
[2020-08-30] MEDS ORDERED: BISMUTH SUBSALICYLATE 524 MG/30 ML UD PO PRN (15:31)
[2020-08-30] MEDS ORDERED: IBUPROFEN 400 MG TABLET (FP) PO PRN (15:31)
[2020-08-30] MEDS ORDERED: MAGNESIUM CITRATE 300 ML BOTTLE PO PRN (15:31)
[2020-08-30] MEDS ORDERED: ACETAMINOPHEN 325 MG TABLET (FP) PO PRN ×2 (15:31)
[2020-08-30] MEDS ORDERED: ONDANSETRON *ODT* 4 MG TABLET SL PRN (15:31)
[2020-08-30 15:55] VITALS: BMI 24.3
[2020-08-30 17:31] LABS: CALCIUM 9.1 mg/dL (8.5-10.1)
[2020-08-30 17:32] LABS: BLOOD UREA NITROGEN 5.4 mg/dL (7-18)
[2020-08-30 17:35] LABS: CREATININE 0.8 mg/dL (0.55-1.3)
[2020-08-30] MEDS: diazePAM 5 MG TABLET PO SCH ×2 (17:35→22:39)
[2020-08-30] MEDS: PRENATAL VITAMINS W/ FOLIC ACID TABLET (FP) PO SCH (17:36)
[2020-08-30] MEDS: NICOTINE 14 MG/24 HOURS TOPICAL PATCH TD SCH (17:36)
[2020-08-30] MEDS: hydrOXYzine PAMOATE 25 MG CAPSULE (FP) PO SCH ×2 (17:36→22:39)
[2020-08-30 17:37] LABS: BILIRUBIN,TOTAL 0.6 mg/dL (0.2-1); TOT PROT 7.3 g/dl (6.4-8.2)
[2020-08-30 17:43] LABS: HEMATOCRIT 41.6 % (35.4-49); MCH 31.1 pg (25.7-33.7); MCHC 33.7 g/dl (32.0-35.9); MEAN CELL VOLUME 92.2 fl (80-96); MEAN PLT VOLUME 9.2 fl (7.5-11.1); PLATELET COUNT 131 K/MM3 (134-434); RBC 4.51 M/mm3 (4.00-5.60); WHITE BLOOD COUNT 4.2 K/mm3 (4.0-10.0)
[2020-08-30] MEDS: THIAMINE HCL 100 MG TABLET (FP) PO SCH (22:39)
[2020-08-30] MEDS: MELATONIN 5 MG TABLETS PO SCH (22:39)
[2020-08-31] MEDS: hydrOXYzine PAMOATE 25 MG CAPSULE (FP) PO SCH ×5 (05:35→22:05)
[2020-08-31] MEDS: diazePAM 5 MG TABLET PO SCH ×4 (05:36→22:04)
[2020-08-31] MEDS: PRENATAL VITAMINS W/ FOLIC ACID TABLET (FP) PO SCH (10:09)
[2020-08-31] MEDS: NICOTINE 14 MG/24 HOURS TOPICAL PATCH TD SCH (10:20)
[2020-08-31 11:02] LABS: HIV INTERPRETATION NEGATIVE (NEGATIVE)
[2020-08-31] MEDS: amLODIPine BESYLATE 5 MG TABLET (FP) PO SCH (11:50)
[2020-08-31] MEDS: diazePAM 5 MG TABLET PO PRN ×2 (14:19→20:09)
[2020-08-31] MEDS: METHOCARBAMOL 500 MG TABLET PO PRN (14:19)
[2020-08-31] MEDS ORDERED: GABAPENTIN 100 MG CAPSULE PO ONE (22:00)
[2020-08-31] MEDS: MELATONIN 5 MG TABLETS PO SCH (22:03)
[2020-08-31] MEDS: THIAMINE HCL 100 MG TABLET (FP) PO SCH (22:05)
[2020-09-01] MEDS: diazePAM 5 MG TABLET PO PRN ×3 (02:33→17:27)
[2020-09-01] MEDS: diazePAM 5 MG TABLET PO SCH ×3 (05:37→22:03)
[2020-09-01] MEDS: hydrOXYzine PAMOATE 25 MG CAPSULE (FP) PO SCH ×5 (05:37→22:02)
[2020-09-01] MEDS: amLODIPine BESYLATE 5 MG TABLET (FP) PO SCH (10:25)
[2020-09-01] MEDS: METHOCARBAMOL 500 MG TABLET PO PRN ×2 (10:25→19:59)
[2020-09-01] MEDS: PRENATAL VITAMINS W/ FOLIC ACID TABLET (FP) PO SCH (10:27)
[2020-09-01] MEDS: NICOTINE 14 MG/24 HOURS TOPICAL PATCH TD SCH (10:27)
[2020-09-01] MEDS: MELATONIN 5 MG TABLETS PO SCH (22:02)
[2020-09-01] MEDS: THIAMINE HCL 100 MG TABLET (FP) PO SCH (22:02)
[2020-09-02] MEDS: diazePAM 5 MG TABLET PO PRN ×3 (01:42→14:16)
[2020-09-02] MEDS: hydrOXYzine PAMOATE 25 MG CAPSULE (FP) PO SCH ×5 (05:45→22:14)
[2020-09-02] MEDS: diazePAM 5 MG TABLET PO SCH ×2 (05:45→18:28)
[2020-09-02 06:06] LABS: SARS-CoV-2 NAA Not Detected (Not Detected)
[2020-09-02] MEDS: NICOTINE 14 MG/24 HOURS TOPICAL PATCH TD SCH (10:16)
[2020-09-02] MEDS: amLODIPine BESYLATE 5 MG TABLET (FP) PO SCH (10:18)
[2020-09-02] MEDS: PRENATAL VITAMINS W/ FOLIC ACID TABLET (FP) PO SCH (10:18)
[2020-09-02] MEDS: MELATONIN 5 MG TABLETS PO SCH (22:14)
[2020-09-02] MEDS: THIAMINE HCL 100 MG TABLET (FP) PO SCH (22:14)
[2020-09-02] MEDS: METHOCARBAMOL 500 MG TABLET PO PRN (22:14)
[2020-09-03] MEDS: hydrOXYzine PAMOATE 25 MG CAPSULE (FP) PO SCH (05:20)
[2020-09-03] MEDS ORDERED: diazePAM 5 MG TABLET PO ONE (06:00)
[2020-09-03 06:24] VITALS: BP 136/85; PULSE 75; TEMP 96
== END 2020-09-03 09:08 | disposition home or self-care (01) | DRG 775 ==
LOC: YASAS 13:38 → Y6N 16:11
PROVIDERS: ADMIT Allergy & Immunology; ATTEND Allergy & Immunology
PROC: HZ2ZZZZ Detoxification Services for Substance Abuse Treatment (ICD-10-PCS; principal; 2020-08-30)
DX: F10.230 Alcohol dependence with withdrawal, uncomplicated (principal); F17.210 Nicotine dependence, cigarettes, uncomplicated; D72.819 Decreased white blood cell count, unspecified; D57.3 Sickle-cell trait; I10 Essential (primary) hypertension; R74.8 Abnormal levels of other serum enzymes; Z86.16 Personal history of COVID-19; Z87.828 Personal history of other (healed) physical injury and trauma; Z98.890 Other specified postprocedural states
CPT/HCPCS: 36415; 80053; 85027; 86780; 87389; C9803; U0003; U0005

== ENCOUNTER 2022-01-10 11:02 | Inpatient (IN) | payer OTHER ==
[2022-01-10 13:30] VITALS: BMI 23.5
[2022-01-10] MEDS ORDERED: MAG HYDROX/AL HYDROX/SIMETH 30 ML UNIT-DOSE CUP PO PRN (14:46)
[2022-01-10] MEDS ORDERED: ACETAMINOPHEN 325 MG TABLET (FP) PO PRN ×2 (14:46)
[2022-01-10] MEDS ORDERED: BISMUTH SUBSALICYLATE 524 MG/30 ML PO PRN (14:46)
[2022-01-10] MEDS ORDERED: MAGNESIUM HYDROX 2400MG/30ML ORAL SUSPENSION 30 ML CUP PO PRN (14:46)
[2022-01-10] MEDS ORDERED: LOPERAMIDE HCL 2 MG CAPSULE PO PRN (14:46)
[2022-01-10] MEDS ORDERED: IBUPROFEN 400 MG TABLET (FP) PO PRN (14:46)
[2022-01-10] MEDS ORDERED: MAGNESIUM CITRATE 300 ML BOTTLE PO PRN (14:46)
[2022-01-10] MEDS ORDERED: BENZOCAINE/MENTHOL (CHLORASEPTIC ) LOZENGE MM PRN (14:46)
[2022-01-10] MEDS ORDERED: ONDANSETRON *ODT* 4 MG TABLET SL PRN (14:46)
[2022-01-10] MEDS ORDERED: DICYCLOMINE HCL 10 MG CAPSULE PO PRN (14:46)
[2022-01-10] MEDS: hydrOXYzine PAMOATE 25 MG CAPSULE (FP) PO SCH ×2 (18:28→22:17)
[2022-01-10] MEDS ORDERED: LORazepam 1 MG TABLET PO PRN (18:37)
[2022-01-10] MEDS: LORazepam 2 MG TABLET PO SCH ×2 (18:48→22:18)
[2022-01-10] MEDS: THIAMINE HCL 100 MG TABLET (FP) PO SCH (22:17)
[2022-01-10] MEDS: MELATONIN 5 MG TABLETS PO SCH (22:17)
[2022-01-11] MEDS: hydrOXYzine PAMOATE 25 MG CAPSULE (FP) PO SCH ×5 (06:09→22:29)
[2022-01-11] MEDS: LORazepam 2 MG TABLET PO SCH ×4 (06:09→22:29)
[2022-01-11 09:41] LABS: HEMATOCRIT 38.3 % (35.4-49); HEMOGLOBIN 13.2 GM/dL (11.7-16.9); MCH 31.4 pg (25.7-33.7); MCHC 34.6 g/dl (32.0-35.9); MEAN CELL VOLUME 90.9 fl (80-96); MEAN PLT VOLUME 8.4 fl (7.5-11.1); PLATELET COUNT 198 10^3/uL (134-434); RBC 4.22 M/mm3 (4.00-5.60); RDW 17.3 % (11.9-15.9); WHITE BLOOD COUNT 3.9 K/mm3 (4.0-10.0)
[2022-01-11 09:45] LABS: CALCIUM 9.1 mg/dL (8.5-10.1)
[2022-01-11 09:46] LABS: ALBUMIN 3.5 g/dl (3.4-5.0); BLOOD UREA NITROGEN 9.7 mg/dL (7-18)
[2022-01-11 09:49] LABS: CREATININE 0.8 mg/dL (0.55-1.3)
[2022-01-11 09:50] LABS: TOT PROT 6.6 g/dl (6.4-8.2)
[2022-01-11 09:51] LABS: BILIRUBIN,TOTAL 0.9 mg/dL (0.2-1)
[2022-01-11] MEDS: PRENATAL VITAMINS W/ FOLIC ACID TABLET (FP) PO SCH (10:23)
[2022-01-11] MEDS: NICOTINE 14 MG/24 HOURS TOPICAL PATCH TD SCH (10:24)
[2022-01-11] MEDS: METHOCARBAMOL 500 MG TABLET PO PRN (18:26)
[2022-01-11] MEDS: IBUPROFEN 600 MG TABLET (FP) PO PRN (21:55)
[2022-01-11] MEDS: THIAMINE HCL 100 MG TABLET (FP) PO SCH (22:29)
[2022-01-11] MEDS: MELATONIN 5 MG TABLETS PO SCH (22:29)
[2022-01-12] MEDS: LORazepam 1 MG TABLET PO SCH ×4 (06:52→22:06)
[2022-01-12] MEDS: hydrOXYzine PAMOATE 25 MG CAPSULE (FP) PO SCH ×5 (06:52→22:08)
[2022-01-12] MEDS: GABAPENTIN 300 MG CAPSULE PO PRN (10:33)
[2022-01-12] MEDS: amLODIPine BESYLATE 5 MG TABLET (FP) PO SCH (10:33)
[2022-01-12] MEDS: PRENATAL VITAMINS W/ FOLIC ACID TABLET (FP) PO SCH (10:33)
[2022-01-12] MEDS: NICOTINE 14 MG/24 HOURS TOPICAL PATCH TD SCH (10:55)
[2022-01-12] MEDS: NICOTINE 10 MG CARTRIDGE (INHALER) IH PRN (22:06)
[2022-01-12] MEDS: MELATONIN 5 MG TABLETS PO SCH (22:08)
[2022-01-12] MEDS: THIAMINE HCL 100 MG TABLET (FP) PO SCH (22:29)
[2022-01-12] MEDS: IBUPROFEN 600 MG TABLET (FP) PO PRN (22:47)
[2022-01-13] MEDS ORDERED: LORazepam 0.5 MG TABLET PO PRN
[2022-01-13] MEDS: LORazepam 0.5 MG TABLET PO SCH ×4 (06:06→22:37)
[2022-01-13] MEDS: hydrOXYzine PAMOATE 25 MG CAPSULE (FP) PO SCH ×5 (06:06→22:38)
[2022-01-13] MEDS: GABAPENTIN 300 MG CAPSULE PO PRN ×2 (06:09→14:09)
[2022-01-13] MEDS: amLODIPine BESYLATE 5 MG TABLET (FP) PO SCH (10:19)
[2022-01-13] MEDS: METHOCARBAMOL 500 MG TABLET PO PRN (10:19)
[2022-01-13] MEDS: NICOTINE 14 MG/24 HOURS TOPICAL PATCH TD SCH (10:20)
[2022-01-13] MEDS: PRENATAL VITAMINS W/ FOLIC ACID TABLET (FP) PO SCH (10:21)
[2022-01-13] MEDS: IBUPROFEN 600 MG TABLET (FP) PO PRN (17:50)
[2022-01-13] MEDS: MELATONIN 5 MG TABLETS PO SCH (22:38)
[2022-01-13] MEDS: THIAMINE HCL 100 MG TABLET (FP) PO SCH (22:38)
[2022-01-13] MEDS: NICOTINE 10 MG CARTRIDGE (INHALER) IH PRN (22:40)
[2022-01-14] MEDS ORDERED: LORazepam 0.5 MG TABLET PO ONE (05:00)
[2022-01-14] MEDS: hydrOXYzine PAMOATE 25 MG CAPSULE (FP) PO SCH ×5 (05:23→22:09)
[2022-01-14] MEDS ORDERED: cloNIDine HCL 0.1 MG TABLET PO PRN (09:23)
[2022-01-14] MEDS: amLODIPine BESYLATE 5 MG TABLET (FP) PO SCH (10:57)
[2022-01-14] MEDS: METHOCARBAMOL 500 MG TABLET PO PRN ×2 (10:57→22:14)
[2022-01-14] MEDS: NICOTINE 14 MG/24 HOURS TOPICAL PATCH TD SCH (11:19)
[2022-01-14] MEDS: PRENATAL VITAMINS W/ FOLIC ACID TABLET (FP) PO SCH (11:19)
[2022-01-14 17:40] VITALS: RESP 18
[2022-01-14] MEDS ORDERED: LORazepam 0.5 MG TABLET PO PRN (18:21)
[2022-01-14] MEDS: MELATONIN 5 MG TABLETS PO SCH (22:09)
[2022-01-14] MEDS: THIAMINE HCL 100 MG TABLET (FP) PO SCH (22:09)
[2022-01-15] MEDS: hydrOXYzine PAMOATE 25 MG CAPSULE (FP) PO SCH ×2 (05:46→11:17)
[2022-01-15] MEDS: NICOTINE 10 MG CARTRIDGE (INHALER) IH PRN (05:53)
[2022-01-15 08:51] VITALS: TEMP 97.1
[2022-01-15 09:22] VITALS: BP 134/81; PULSE 94
[2022-01-15] MEDS: PRENATAL VITAMINS W/ FOLIC ACID TABLET (FP) PO SCH (10:24)
[2022-01-15] MEDS: amLODIPine BESYLATE 5 MG TABLET (FP) PO SCH (10:24)
[2022-01-15] MEDS: NICOTINE 14 MG/24 HOURS TOPICAL PATCH TD SCH (10:25)
== END 2022-01-15 10:34 | disposition home or self-care (01) | DRG 775 ==
LOC: YASAS 11:02 → Y3N 15:08
PROVIDERS: ADMIT Allergy & Immunology; ATTEND Surgery
PROC: HZ2ZZZZ Detoxification Services for Substance Abuse Treatment (ICD-10-PCS; principal; 2022-01-10)
DX: F10.230 Alcohol dependence with withdrawal, uncomplicated (principal); F12.20 Cannabis dependence, uncomplicated; F17.210 Nicotine dependence, cigarettes, uncomplicated; I10 Essential (primary) hypertension; D57.3 Sickle-cell trait; Z86.16 Personal history of COVID-19; Z86.69 Personal history of other diseases of the nervous system and sense organs
CPT/HCPCS: 36415; 80053; 85027; 86780; C9803-CS; U0003; U0005